=== PATIENT | female | born 1970 | race Caucasian/White ===

== ENCOUNTER → 2017-02-08 | Outpatient (CLI) | payer BC ==
--- NOTE | 2017-02-11 12:56 | RAD ---
2-D screening mammogram Indication: 47-year-old female for routine screening. Technique: 2-D mammogram of the bilateral breasts. Comparison: Prior study from 2013. Findings: There are scattered areas of fibroglandular densities (category C). No suspicious calcifications, spiculated mass or architectural distortion. Impression: No suspicious findings. BI-RADS 1 BI-RADS 1 -- negative findings (within normal) MTDD
== END | disposition home or self-care (01) ==
LOC: MAMMO 11:30
PROVIDERS: ATTEND Obstetrics & Gynecology
DX: Z12.31 Encounter for screening mammogram for malignant neoplasm of breast (principal)
CPT/HCPCS: G0202; 77067